=== PATIENT | female | born 1965 ===

== ENCOUNTER 2023-07-30 09:15 | Outpatient (CLI) | payer BC, SELFPAY ==
--- NOTE | ~2023-07-30 | CT_ITS ---
EXAMINATION: CT sinus wo con DATE: 07/30/2023 09:36 INDICATION: Chronic pansinusitis TECHNIQUE: Computed tomography (CT) of the paranasal sinuses was performed without intravenous contra st. The dose-length product was 266.74 mGy-cm. Automated exposure control and iterative reconstructio n technique were employed. COMPARISON: None FINDINGS: There is mucosal thickening of the left maxillary, ethmoid and right sphenoid sinuses. Left carter nasal septal deviation. Right ostiomeatal unit is patent. Left ostiomeatal unit is partially occ luded by soft tissue. Mastoids are pneumatized. IMPRESSION: 1. Mild-moderate sinus disease. Reviewed, dictated and finalized at location B.
== END 2023-07-30 09:16 ==
PROVIDERS: PCP Otolaryngology; Visit Provider Otolaryngology
DX: J32.4 Chronic pansinusitis (principal)
CPT/HCPCS: 70486